=== PATIENT | male | born 1930 ===

== ENCOUNTER → 2017-10-18 | Day surgery (SDC) | payer OTHER, MEDICARE ==
[~2017-10-18] VITALS: Ht 170.2 cm; Wt 78.9 kg
[~2017-10-18] MED LIST: LISINOPRIL40 M1 PO; ROXICODONE5 M1 PO
--- NOTE | 2017-10-18 14:08 | Operative Report ---
Operative/Inv Procedure Report Surgery Date: 10/18/17 Name of Procedure: Robotic repair of incarcerated recurrent right inguinal hernia with 3-D Max medium mesh Pre-Operative Diagnosis: Recurrent incarcerated right inguinal hernia Post-Operative Diagnosis: Same, indirect with large lipoma Estimated Blood Loss: none Surgeon/Headwaiter/Headwaitress: Louis PORTILLO,Nolan Ambrosio PA-C Anesthesia: general endotracheal tube IV Fluids: 1200 mL crystalloid Implants: 3-D Max medium right mesh Drains: None Specimens: None Tourniquet: None Complications: None Condition: Excellent, to PACU extubated Operative Indication: Anastacio is an 87-year-old very active gentleman who continues to work every day and who is status post bilateral open inguinal hernia repairs many years ago. He's had a long-standing right inguinal bulge that used to be reducible but presently has become incarcerated over the last month or so. He's not had any change in bowel or bladder habits. He presents for robotic repair. He was marked in the preop holding area as to the right groin being the correct side Operative/Procedure Note Note: Patient's taken to the operating room placed on the operating table supine position. An awake timeout was performed. He was a difficult intubation due to his anatomy and mouth opening so glide scope was required to perform an uneventful endotracheal intubation. The lower abdomen was clipped more widely of hair and and then arms were tucked by his side. With the patient now asleep and neuromuscular blocked, I was finally able to reduce the hernia with significant compression pushing towards the end internal ring. Venodyne boots were in place. The abdomen was then prepped with ChloraPrep and then draped usual sterile fashion including Ioban. He received Kefzol IV prior to skin incision. He was placed in slight Trendelenburg position and then local anesthetic infiltrated in the supraumbilical area where a curvilinear incision was made and carried down to the fascia. Fascia was opened vertically for short distance expose a scant subcutaneous fat and then the peritoneum which was opened carefully to gain entry safely into the peritoneal cavity. Finger sweep revealed there were no adhesions and then a 12 mm air aerocele Oseguera port placed. The 8mm da Darshana 30 scope was inserted and right away we could see the pathology in the right groin with colon exiting out a large defect. 38 mm working ports were now placed one laterally on the right hand breath from the midline and 2 on the left all after infiltrating local anesthetic at about the level of the umbilicus. The da Darshana robot was then docked and targeted. It was set up with monopolar calvin in the right hand #4 and cadiere #1 and a bipolar fenestrated grasper in arm 2. Initially put some traction on to the colon that was protruding through the defect to see as this could be released wherever this would require required opening through peritoneum to detach it which I do not want to do at this point. I then created a flap of peritoneum 5 cm cephalad to the top of the defect. I carried it from the lateral ASIS area crossed the epigastrics and across the medial umbilical ligaments. The epigastric vessels were now well seen and preserved along the anterior abdominal wall along with the fat pad. Seen the location of the vessels we now knew this was a large indirect defect. Medially I created the flap all the way down to the symphysis pubis exposing the pubic bone. Was no evidence of direct or femoral hernias. Laterally I took down the flap serving some of the fibrofatty tissue on the lateral musculature to protect the lateral nerves. I then began to focus on reducing the large hernia sac. With progressive traction using the fourth arm to help reduced a very large indirect sac and found a large lipoma adherent to the medial portion of the sac. I was able to roll this lipoma out of the defect here is when I could appreciate the cord structures with a medial deviation of the vas. I freed this lipoma and the peritoneum from the back of the epigastrics all the way beyond the medial deviation of the vas and in continuity with the dissection had made along the ramus. There was taken to avoid injury to the iliac vein which was not seen. More laterally there was a large bulk of fatty tissue exiting out this large defect. Some of this was the back of the sac and here I encountered some Prolene sutures that were divided and allowed dissected peel-away on the underlying structures. Seemed to be a large fat pad here as welland in inspecting this more fully significant vessels were seen which is very atypical and confounded the picture where the cord truly resided. Medially I aortae dissected and I believed to be cord with the vas off the back of the lipoma. This was not an easy plane but I was able to perform it without any injury to the vessels which were well-seen. Working laterally now with some external compression pushing the large fat pad more into view it certainly seemed that there was just a large lateral lipoma at first could be divided. I began to perform this dissection, prominent vessels began to come into view it became clear that the cord was actually split between the medial portion associated with the vas and the bulk of the arterial and large larger veins laterally. Area where there were sutures that had to be dissected off the margin of the defect and up inside the defect now resided close to this portion of the cord working close to the sutures and through this scar I was able to dissect the cord free from the back of the sac and fatty layer. The large lipoma proved to be preperitoneal fat more associated with the iliac vessels and not the usual lateral lobule of fat. I could clearly see that the peritoneum was well off the edge of the defect and off of both segments of the cord now. I had enough of an inferior edge for the mesh to sit without concerns that preperitoneal fat or sac would get pulled back up into the defect. There was no bleeding from any of dissection around the cords. I now measured the space would accommodate 3-D Max medium mesh and a right-sided mesh was selected and placed into the space it sat nicely covering the entire myopectineal orifice overlapping the symphysis in the midline and with the tail sitting in the lateral space that had been created. The inferior edge set just anterior to both segments of the cord with the medial lipoma sitting up nicely within the confines of the mesh. I placed 2 Tycron sutures 2-0 to hold the mesh in place one just lateral to the epigastric vessels and the other or medially just above the M on the mesh the peritoneum was now closed after insuring that the lipoma sat nicely in front of the mesh. This was done with a 2-0V lock 9 inch suture absorbable. I lowered the pressure progressively from 15-10 and then 8 to facilitate the closure. There was excellent coverage there were no holes in the peritoneum from the dissection. Photographs were taken along the way and at completion. The robot was undocked and the ports taken out under direct vision with no bleeding. The pneumoperitoneum was released and we closed the fascia at the midline with 2 [id number] sutures of 0 Maxon followed by 3-0 Vicryl in the subcutaneous and 4-0 Monocryl running subcuticular skin closures. Steri- Strips 4 x 4 and OpSite were placed. Patient tolerated the procedure well was taken to the recovery room extubated in stable condition all sponge needle was recount affirms correct 2 completion of the case. There was no subcutaneous cutaneous emphysema but as expected he had a preperitoneal CO2 at the site of the prior hernia and in the scrotum particular the right hemiscrotum these were improved with manual compression during the closure but clearly some of the gas was trapped behind the flap closure. Findings: Giant indirect hernia with a large medial lipoma and a split cord. The unusual anatomy as well as the incarceration and recurrent nature of the hernia all added to the complexity of the case as well as the time taken to complete the case over 4 hours. This would qualify for 22 modifier Discharge Disposition: PACU
== END ==
LOC: STS 03:14
DX: K40.31 Unilateral inguinal hernia, with obstruction, without gangrene, recurrent (principal); D17.5 Benign lipomatous neoplasm of intra-abdominal organs; I12.9 Hypertensive chronic kidney disease with stage 1 through stage 4 chronic kidney disease, or unspecified chronic kidney disease; N18.3 Chronic kidney disease, stage 3 (moderate); F17.200 Nicotine dependence, unspecified, uncomplicated; K22.70 Barrett's esophagus without dysplasia; D50.9 Iron deficiency anemia, unspecified
CPT/HCPCS: C1781; J0131; J0690; J2250; J3490